=== PATIENT | male | born 1950 | race Caucasian/White ===

== ENCOUNTER → 2016-05-20 | Outpatient (CLI) | payer OTHER ==
[~2016-05-20] MED LIST: DIOV160T6 PO; FLUR30CA12 PO; GLUCTAB PO; HYDR-3533 PO; SOMA350T PO
[2016-05-20 09:50] LABS: ALKALINE PHOSPHATASE 96 U/L (45-117); ALT (GPT) 32 U/L (12-78); ANION GAP 6 MEQ/L (5-15); AST (GOT) 23 U/L (15-37); BICARBONATE 27.8 MEQ/L (21.0-32.0); BLOOD UREA NITROGEN 23 MG/DL (7-18); CHLORIDE 100 MEQ/L (98-107); GLOMERULAR FILTRATION RATE 65 ML/MIN (>89); GLUCOSE,FASTING 137 MG/DL (74-99); HDL CHOLESTEROL 32.9 MG/DL (40.0-60.0); LDL CHOLESTEROL 158 MG/DL (0-99); POTASSIUM 4.8 MEQ/L (3.5-5.1); SODIUM (NA) 134 MEQ/L (136-145); TOTAL BILIRUBIN ADULT 0.3 MG/DL (0.2-1.0)
[2016-05-20 15:56] LABS: HEMOGLOBIN A1a 0.9 %; HEMOGLOBIN A1b 2.2 %; HEMOGLOBIN Ao 82.8 %; HEMOGLOBIN LA1C 2.4 %; HEMOGLOBIN P3 4.4 %
== END ==
LOC: PLAB 07:36
PROVIDERS: ATTEND Family Medicine
DX: I10 Essential (primary) hypertension (principal); E78.4 Other hyperlipidemia; E11.9 Type 2 diabetes mellitus without complications; M54.5 Low back pain
CPT/HCPCS: 80053; 80061; 83036; 84443

== ENCOUNTER → 2016-08-26 | Outpatient (CLI) | payer MEDICARE ==
[2016-08-26 09:27] LABS: HEMATOCRIT 52.2 % (39.0-51.0); MEAN CELL VOLUME 91.9 FL (80.0-100.0); MEAN CORPUSCULAR HEMOGLOBIN 31.5 PG (27.0-34.0); MEAN CORPUSCULAR HGB CONC 34.3 % (32.0-36.0); PLATELET COUNT 219 TH/MM3 (150-450); RED BLOOD COUNT 5.68 MIL/MM3 (4.50-5.90); REVIEW FLAG FINAL; WHITE BLOOD COUNT 10.9 TH/MM3 (4.0-11.0)
[2016-08-26 09:58] LABS: ALKALINE PHOSPHATASE 95 U/L (45-117); ALT (GPT) 28 U/L (12-78); ANION GAP 9 MEQ/L (5-15); AST (GOT) 23 U/L (15-37); BICARBONATE 25.9 MEQ/L (21.0-32.0); BLOOD UREA NITROGEN 14 MG/DL (7-18); CHLORIDE 102 MEQ/L (98-107); GLOMERULAR FILTRATION RATE 72 ML/MIN (>89); GLUCOSE,FASTING 141 MG/DL (74-99); LDL CHOLESTEROL 155 MG/DL (0-99); POTASSIUM 4.2 MEQ/L (3.5-5.1); SODIUM (NA) 137 MEQ/L (136-145); TOTAL BILIRUBIN ADULT 0.4 MG/DL (0.2-1.0)
[2016-08-26 15:51] LABS: HEMOGLOBIN A1a 0.8 %; HEMOGLOBIN A1b 2.1 %; HEMOGLOBIN Ao 83.8 %; HEMOGLOBIN LA1C 2.3 %
== END ==
LOC: PLAB 07:32
PROVIDERS: ATTEND Family Medicine
DX: E78.4 Other hyperlipidemia (principal); E11.9 Type 2 diabetes mellitus without complications; I10 Essential (primary) hypertension; M54.5 Low back pain; Z12.11 Encounter for screening for malignant neoplasm of colon; Z68.41 Body mass index [BMI] 40.0-44.9, adult
CPT/HCPCS: 36415; 80053; 80061; 83036; 84443; 85027

== ENCOUNTER → 2016-11-02 | Outpatient (CLI) | payer MEDICARE ==
[2016-11-02 12:56] LABS: HEMATOCRIT 53.2 % (39.0-51.0); MEAN CELL VOLUME 91.9 FL (80.0-100.0); MEAN CORPUSCULAR HEMOGLOBIN 30.1 PG (27.0-34.0); MEAN CORPUSCULAR HGB CONC 32.8 % (32.0-36.0); PLATELET COUNT 244 TH/MM3 (150-450); RED BLOOD COUNT 5.79 MIL/MM3 (4.50-5.90); RED CELL DISTRIBUTION WIDTH 14.3 % (11.6-17.2); REVIEW FLAG FINAL
[2016-11-03 04:18] LABS: EBV VCA IgM Negative (Negative)
[2016-11-04 23:53] LABS: CYTOMEGALOVIRUS IGM LESS THAN 30.00 AU/mL (())
== END ==
LOC: PLAB 08:09
PROVIDERS: ATTEND Family Medicine
DX: R59.1 Generalized enlarged lymph nodes (principal); K11.1 Hypertrophy of salivary gland
CPT/HCPCS: 36415; 85027; 86644; 86645; 86664; 86665

== ENCOUNTER → 2017-02-05 | Outpatient (CLI) | payer MEDICARE ==
[2017-02-05 09:40] LABS: HEMATOCRIT 51.4 % (39.0-51.0); MEAN CORPUSCULAR HEMOGLOBIN 31.3 PG (27.0-34.0); MEAN CORPUSCULAR HGB CONC 34.1 % (32.0-36.0); PLATELET COUNT 210 TH/MM3 (150-450); RED BLOOD COUNT 5.59 MIL/MM3 (4.50-5.90); RED CELL DISTRIBUTION WIDTH 13.5 % (11.6-17.2); REVIEW FLAG FINAL; WHITE BLOOD COUNT 11.1 TH/MM3 (4.0-11.0)
[2017-02-05 09:53] LABS: ANION GAP 8 MEQ/L (5-15); AST (GOT) 20 U/L (15-37); BICARBONATE 27.5 MEQ/L (21.0-32.0); BLOOD UREA NITROGEN 13 MG/DL (7-18); CHLORIDE 102 MEQ/L (98-107); GLOMERULAR FILTRATION RATE 98 ML/MIN (>89); GLUCOSE,FASTING 119 MG/DL (74-99); POTASSIUM 3.9 MEQ/L (3.5-5.1); SODIUM (NA) 137 MEQ/L (136-145)
[2017-02-05 10:06] LABS: ALKALINE PHOSPHATASE 117 U/L (45-117); ALT (GPT) 20 U/L (12-78); HDL CHOLESTEROL 28.2 MG/DL (40.0-60.0); LDL CHOLESTEROL 125 MG/DL (0-99); TOTAL BILIRUBIN ADULT 0.4 MG/DL (0.2-1.0)
[2017-02-05 11:46] LABS: HEMOGLOBIN A1a 0.8 %; HEMOGLOBIN A1b 1.9 %; HEMOGLOBIN Ao 84.2 %; HEMOGLOBIN LA1C 2.2 %; HEMOGLOBIN P3 5.4 %
== END ==
LOC: PLAB 07:44
PROVIDERS: ATTEND Internal Medicine Gastroenterology
DX: K21.0 Gastro-esophageal reflux disease with esophagitis (principal); R11.2 Nausea with vomiting, unspecified; R19.7 Diarrhea, unspecified; R10.9 Unspecified abdominal pain; R93.3 Abnormal findings on diagnostic imaging of other parts of digestive tract; K11.1 Hypertrophy of salivary gland; R59.1 Generalized enlarged lymph nodes; R30.0 Dysuria; N21.0 Calculus in bladder; E11.9 Type 2 diabetes mellitus without complications
CPT/HCPCS: 36415; 80053; 80061; 82941; 83036; 84443; 85027

== ENCOUNTER → 2017-05-14 | Outpatient (CLI) | payer MEDICARE ==
[2017-05-14 09:30] LABS: HEMATOCRIT 51.2 % (39.0-51.0); HEMOGLOBIN 17.4 GM/DL (13.0-17.0); MEAN CELL VOLUME 90.3 FL (80.0-100.0); MEAN CORPUSCULAR HEMOGLOBIN 30.7 PG (27.0-34.0); MEAN PLATELET VOLUME 7.6 FL (7.0-11.0); PLATELET COUNT 223 TH/MM3 (150-450); RED BLOOD COUNT 5.67 MIL/MM3 (4.50-5.90); RED CELL DISTRIBUTION WIDTH 14.1 % (11.6-17.2); WHITE BLOOD COUNT 9.2 TH/MM3 (4.0-11.0)
[2017-05-14 09:58] LABS: ALBUMIN 3.9 GM/DL (3.4-5.0); AST (GOT) 18 U/L (15-37); BICARBONATE 28.1 MEQ/L (21.0-32.0); BLOOD UREA NITROGEN 14 MG/DL (7-18); CALCIUM 9.1 MG/DL (8.5-10.1); CHLORIDE 102 MEQ/L (98-107); CREATININE 0.94 MG/DL (0.60-1.30); GLOMERULAR FILTRATION RATE 81 ML/MIN (>89); GLUCOSE,FASTING 151 MG/DL (74-99); SODIUM (NA) 136 MEQ/L (136-145)
[2017-05-14 10:00] LABS: CHOLESTEROL 192 MG/DL (120-200); TRIGLYCERIDES 150 MG/DL (42-150)
[2017-05-14 10:19] LABS: ALKALINE PHOSPHATASE 131 U/L (45-117); ALT (GPT) 19 U/L (12-78); HDL CHOLESTEROL 29.5 MG/DL (40.0-60.0); LDL CHOLESTEROL 133 MG/DL (0-99); TOTAL BILIRUBIN ADULT 0.5 MG/DL (0.2-1.0); TOTAL PROTEIN 7.5 GM/DL (6.4-8.2)
[2017-05-14 15:46] LABS: HEMOGLOBIN A1C 6.4 % (4.3-6.0)
== END ==
LOC: PLAB 07:44
PROVIDERS: ATTEND Family Medicine
DX: K11.1 Hypertrophy of salivary gland (principal); R59.1 Generalized enlarged lymph nodes; R19.7 Diarrhea, unspecified; R30.0 Dysuria; N21.0 Calculus in bladder; E11.9 Type 2 diabetes mellitus without complications
CPT/HCPCS: 36415; 80053; 80061; 83036; 84443; 85027

== ENCOUNTER → 2017-07-12 | Outpatient (CLI) | payer MEDICARE ==
[2017-07-12 14:01] LABS: AUTOMATED NEUTROPHIL # 6.5 TH/MM3 (1.8-7.7); BASOPHIL # 0.1 TH/MM3 (0-0.2); BASOPHIL % 1.1 % (0.0-2.0); EOSINOPHIL # 0.1 TH/MM3 (0-0.4); EOSINOPHIL % 1.3 % (0.0-4.0); HEMATOCRIT 48.6 % (39.0-51.0); HEMOGLOBIN 16.4 GM/DL (13.0-17.0); LYMPH % 22.2 % (9.0-44.0); LYMPHOCYTE # 2.1 TH/MM3 (1.0-4.8); MEAN CELL VOLUME 91.1 FL (80.0-100.0); MEAN CORPUSCULAR HEMOGLOBIN 30.7 PG (27.0-34.0); MEAN CORPUSCULAR HGB CONC 33.7 % (32.0-36.0); MONO % 7.7 % (0.0-8.0); MONOCYTE # 0.7 TH/MM3 (0-0.9); NEUT % 67.7 % (16.0-70.0); PLATELET COUNT 188 TH/MM3 (150-450); RED BLOOD COUNT 5.34 MIL/MM3 (4.50-5.90); WHITE BLOOD COUNT 9.6 TH/MM3 (4.0-11.0)
[2017-07-12 14:15] LABS: ALBUMIN 3.5 GM/DL (3.4-5.0); ALT (GPT) 20 U/L (12-78); AST (GOT) 24 U/L (15-37); BICARBONATE 28.3 MEQ/L (21.0-32.0); BLOOD UREA NITROGEN 12 MG/DL (7-18); CALCIUM 9.3 MG/DL (8.5-10.1); CHLORIDE 103 MEQ/L (98-107); CREATININE 1.04 MG/DL (0.60-1.30); GLOMERULAR FILTRATION RATE 71 ML/MIN (>89); GLUCOSE,RANDOM 202 MG/DL (74-106); SODIUM (NA) 137 MEQ/L (136-145)
[2017-07-12 14:18] LABS: ALKALINE PHOSPHATASE 125 U/L (45-117); TOTAL BILIRUBIN ADULT 0.4 MG/DL (0.2-1.0); TOTAL PROTEIN 7.3 GM/DL (6.4-8.2)
== END ==
LOC: PLAB 09:30
PROVIDERS: ATTEND Internal Medicine Gastroenterology
DX: K21.0 Gastro-esophageal reflux disease with esophagitis (principal); R11.2 Nausea with vomiting, unspecified; R19.7 Diarrhea, unspecified; R10.13 Epigastric pain
CPT/HCPCS: 36415; 80053; 82150; 83690; 85025; 87329

== ENCOUNTER → 2017-08-06 | Outpatient (CLI) | payer MEDICARE ==
[2017-08-06 12:19] LABS: BICARBONATE 30.9 MEQ/L (21.0-32.0); CALCIUM 8.8 MG/DL (8.5-10.1)
[2017-08-06 12:23] LABS: CREATININE 0.94 MG/DL (0.60-1.30)
== END ==
LOC: PLAB 10:52
DX: E87.5 Hyperkalemia (principal)
CPT/HCPCS: 36415; 80048

== ENCOUNTER → 2017-09-21 | Outpatient (CLI) | payer MEDICARE ==
[2017-09-21 13:57] LABS: ALBUMIN 3.5 GM/DL (3.4-5.0); ALT (GPT) 22 U/L (12-78); AST (GOT) 21 U/L (15-37); BICARBONATE 25.4 MEQ/L (21.0-32.0); BLOOD UREA NITROGEN 11 MG/DL (7-18); CALCIUM 9.2 MG/DL (8.5-10.1); CHLORIDE 104 MEQ/L (98-107); CHOLESTEROL 103 MG/DL (120-200); CREATININE 1.01 MG/DL (0.60-1.30); GLOMERULAR FILTRATION RATE 74 ML/MIN (>89); GLUCOSE,FASTING 143 MG/DL (74-99); SODIUM (NA) 140 MEQ/L (136-145)
[2017-09-21 13:59] LABS: HEMATOCRIT 47.7 % (39.0-51.0); MEAN CELL VOLUME 87.9 FL (80.0-100.0); MEAN CORPUSCULAR HEMOGLOBIN 29.6 PG (27.0-34.0); MEAN CORPUSCULAR HGB CONC 33.6 % (32.0-36.0); MEAN PLATELET VOLUME 8.3 FL (7.0-11.0); PLATELET COUNT 205 TH/MM3 (150-450); RED BLOOD COUNT 5.43 MIL/MM3 (4.50-5.90); RED CELL DISTRIBUTION WIDTH 14.4 % (11.6-17.2); WHITE BLOOD COUNT 9.6 TH/MM3 (4.0-11.0)
[2017-09-21 14:07] LABS: ALKALINE PHOSPHATASE 146 U/L (45-117); CHOLESTEROL/ HDL RATIO 3.15 RATIO; HDL CHOLESTEROL 32.6 MG/DL (40.0-60.0); LDL CHOLESTEROL 54 MG/DL (0-99); TOTAL BILIRUBIN ADULT 0.4 MG/DL (0.2-1.0); TOTAL PROTEIN 7.4 GM/DL (6.4-8.2); TRIGLYCERIDES 82 MG/DL (42-150)
== END ==
LOC: PLAB 09:15
PROVIDERS: ATTEND Family Medicine
DX: D11.9 Benign neoplasm of major salivary gland, unspecified (principal); R59.1 Generalized enlarged lymph nodes; R19.7 Diarrhea, unspecified; R30.0 Dysuria; N21.0 Calculus in bladder; E11.9 Type 2 diabetes mellitus without complications; K40.91 Unilateral inguinal hernia, without obstruction or gangrene, recurrent; K25.3 Acute gastric ulcer without hemorrhage or perforation; K22.10 Ulcer of esophagus without bleeding
CPT/HCPCS: 36415; 80053; 80061; 83036; 84443; 85027